=== PATIENT | female | born 1965 | race Caucasian/White ===

== ENCOUNTER 2021-10-30 17:20 | Emergency (ER) | payer OTHER ==
[2021-10-30] MEDS ORDERED: Diphtheria/Tetanus Toxoids,Adult (Td) 0.5 ML SDV IM ONE (18:01)
[2021-10-30] MEDS ORDERED: Lidocaine 1% with EPINEPHrine 1:100,000 50 ML MDV INFILT ONE (18:01)
[2021-10-30] MEDS ORDERED: Bacitracin Oint 1 GM U/D Packet TOP ONE (18:01)
== END 2021-10-30 19:50 | disposition home or self-care (01) ==
LOC: JP.ED 17:20
DX: S81.012A Laceration without foreign body, left knee, initial encounter (principal); E03.9 Hypothyroidism, unspecified; Z23 Encounter for immunization; W01.0XXA Fall on same level from slipping, tripping and stumbling without subsequent striking against object, initial encounter
CPT/HCPCS: 12002; 73562-26-LT; 73562-LT; 90471; 90714; 99282; 99283-25